=== PATIENT | female | born 1935 | race African-American/Black ===

== ENCOUNTER 2017-06-27 09:48 | Emergency (ER) | payer MEDICARE, OTHER ==
[~2017-06-27] VITALS: Ht 157.5 cm; Wt 78.0 kg
[2017-06-27] MEDS ORDERED: VALS160T2 PO (10:15)
[2017-06-27] MEDS ORDERED: ATOR10TA69 PO (10:15)
[2017-06-27] MEDS ORDERED: HYDR12.529 PO (10:15)
[2017-06-27] MEDS ORDERED: AMLO5TAB4 PO (10:15)
[2017-06-27] MEDS ORDERED: KETOROLAC 30MG/ML VIAL IV ONE (12:15)
[2017-06-27 12:17] LABS: BASOPHILS % 0.6 % (0.0-2.0); HEMATOCRIT. 38.8 % (36.0-48.0); HEMOGLOBIN. 12.8 g/dL (12.0-16.0); LYMPHOCYTES % 45.4 % (20.0-50.0); MEAN CORPUSCULAR HEMOGLOBIN 29.8 pg (28.0-32.0); MEAN CORPUSCULAR VOLUME 90.1 fL (81.0-99.0); MONOCYTES % 10.5 % (2.0-8.0); NEUTROPHILS % 42.5 % (40.0-76.0); PLATELET 259 x1000/uL (130-400); RED CELL DISTRIBUTION WIDTH 13.1 % (11.6-14.6)
[2017-06-27 12:23] LABS: INR 1.1; PROTHROMBIN TIME 11.2 sec (9.4-11.6)
[2017-06-27 12:37] LABS: CHLORIDE 104 mEq/L (98-107); TROPONIN I < 0.02 ng/mL (0.00-0.04)
[2017-06-27 16:01] VITALS: BP 130/80
== END 2017-06-27 16:01 | disposition home or self-care (01) ==
LOC: ER 12:00
DX: M79.1 Myalgia (principal); M25.512 Pain in left shoulder; E78.00 Pure hypercholesterolemia, unspecified; I11.9 Hypertensive heart disease without heart failure; Z95.1 Presence of aortocoronary bypass graft; Z87.891 Personal history of nicotine dependence
CPT/HCPCS: 36415; 71045; 80053; 83880; 84484; 85025; 85610; 93005; 99285

== ENCOUNTER 2017-12-27 01:58 | Emergency (ER) | payer OTHER, MEDICAID ==
[~2017-12-27] VITALS: Ht 160 cm; Wt 71.8 kg
[~2017-12-27 01:58] MED LIST: AMLO5TAB4 PO; ATOR10TA69 PO; HYDR12.529 PO; VALS160T2 PO; [UNRECOGNIZED DRUG - CODE] PO
[2017-12-27] MEDS ORDERED: ACETAMINOPHEN WITH CODEINE 300/30MG TABLET PO ONE (04:30)
[2017-12-27 05:00] VITALS: BP 155/79
[2017-12-27] MEDS ORDERED: IBUPROFEN 400MG TABLET PO ONE (05:00)
== END 2017-12-27 05:30 | disposition home or self-care (01) ==
LOC: ER 01:58
DX: S43.402A Unspecified sprain of left shoulder joint, initial encounter (principal); I10 Essential (primary) hypertension; I25.2 Old myocardial infarction; F17.200 Nicotine dependence, unspecified, uncomplicated; Z79.899 Other long term (current) drug therapy; W06.XXXA Fall from bed, initial encounter; Y93.89 Activity, other specified; Y92.89 Other specified places as the place of occurrence of the external cause; Y99.8 Other external cause status
CPT/HCPCS: 73030; 73060; 99284

== ENCOUNTER → 2024-08-09 | Day surgery (SDC) | payer MEDICARE, MEDICAID ==
[~2024-08-09] VITALS: Ht 160 cm; Wt 61.2 kg
[2024-08-09] VITALS (10 sets, daily range): BP systolic 141–172; BP diastolic 74–90; PULSE 62–116; RESP 12–20; O2SAT 100
[~2024-08-09] MED LIST changes: -AMLO5TAB4 PO; +AMLO5TAB5 PO; +FENTANYL CITRATE/PF 50MCG/ML 2ML VIAL ONE; +LIDOCAINE HCL 1% 10 MG/ML 10ML VIAL ONE; +[UNRECOGNIZED DRUG - CODE] PO; -[UNRECOGNIZED DRUG - CODE] PO
== END | disposition home or self-care (01) ==
LOC: RAD 09:41
PROVIDERS: ATTEND Family Medicine Adult Medicine
DX: R91.8 Other nonspecific abnormal finding of lung field (principal); I51.7 Cardiomegaly; Z82.49 Family history of ischemic heart disease and other diseases of the circulatory system; Z79.899 Other long term (current) drug therapy; Z98.890 Other specified postprocedural states
CPT/HCPCS: 32408; 88305; 71045; J3010; J2003; 99152; 99153; G0500